=== PATIENT | female | born 1985 | race Caucasian/White ===

== ENCOUNTER 2016-11-26 11:30 | Emergency (ER) | payer BC ==
--- NOTE | 2016-11-26 14:01 | EDDOCDS ---
Nurse's Notes [facility] Name: Dacia Farrell Age: 31 yrs Sex: Female : 1985 Arrival Date: 11/26/2016 Time: 11:30 Bed I10 / 23 Private MD: NO PRIMARY PHYSICIAN, . Diagnosis: Corneal disorder due to contact lens, left eye Presentation: 11/26 11:37 Presenting complaint: Patient states: Left eye irritation since yesterday. Had contact rs3 lens in L eye could not find it last night. Denies change in vision. Adult Sepsis Screening: The patient does not have new or worsening altered mentation. Patient's respiratory rate is less than 22. Systolic blood pressure is greater than 100. Patient has a qSOFA score of 0- Negative Sepsis Screen. Suicide/Homicide risk assessment- the patient denies having any suicidal and/or homicidal ideations and does not present with any other emotional, behavioral or mental health complaints. Status: Patient is not a service liaison representative or dependent. Transition of care: patient was not received from another setting of care. 11:37 Acuity: MARGA Level 4 rs3 11:37 Method Of Arrival: Walkin/Carried/Asstd rs3 Triage Assessment: 11:41 General: Appears in no apparent distress. Pain: Location: left eye. Pt Declines HIV rs3 testing. 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 Mirena 20 mcg/24 hr (5 years) intrauterine IUD - PMHx: none; - PSHx: Tonsillectomy; - Social history: Smoking status: Patient uses tobacco products, light tobacco smoker. No barriers to communication noted, The patient speaks fluent Sinhala. - Family history: Not pertinent. - : The pt / caregiver states he / she is not on anticoagulants. Home medication list is obtained from the patient. - Exposure Risk Screening:: None identified. Screenin:46 Screening information is obtained from prior medical records. Fall risk: No risks ms2 identified. Assistance ADL's: requires no assistance with activities of daily living. Abuse/DV Screen: The patient / caregiver reports he/she is: not in a situation that causes fear, pain or injury. Nutritional screening: No deficits noted. Advance Directives: Currently, there is no health care proxy. There is no active DNR order. There is no living will. There is no Power of Oyster Opener. Advance directive information has not previously been placed in an [facility] medical record. Further advance directive information is declined. home support is adequate. Assessment: 12:24 General: pt's left eye irrigation with Morgon lens initiated with 500 NACL---tolerating ms2 well. 12:44 General: Appears in no apparent distress, eye irrigation almost done---pt tolerating ms2 well. Behavior is cooperative. Neurological: No deficits noted. Respiratory: Respiratory effort is even, unlabored. Derm: Skin is pink, warm & dry. 12:50 General: eye irrigation done -pt tolerated well---PA aware. ms2 Vital Signs: 11:32 BP 155 / 60; Pulse 98; Resp 18 S; Temp 98.2(O); Pulse Ox 98% on R/A; Weight 99.79 kg dd6 (R); Height 5 ft. 0 in. (152.40 cm) (R); 13:58 BP 140 / 67 RA Sitting (auto/reg); Pulse 90; Resp 18; Temp 98.0(O); Pulse Ox 98% on jrd R/A; Pain 0/10; 11:32 Body Mass Index 42.97 (99.79 kg, 152.40 cm) dd6 Vitals: 11:32 Log In Time: November 26, 2016 at 11:30. dd6 ED Course: 11:32 Patient visited by Charles Anthony PCA. dd6 11:32 NO PRIMARY PHYSICIAN, . is Private Physician. dd6 11:32 Patient moved to Waiting dd6 11:33 Patient moved to Pre RCE dd6 11:37 Patient moved to Triage 3 ar3 11:40 Triage Initiated rs3 11:46 [facility] Tipt[facility]. jk8 11:46 Kiko Hodge MD is Attending Physician. jk8 11:46 Patient visited by Suraj Tipton PA-C. jk8 12:11 Patient moved to I6 / ar3 12:12 [facility] Payment Agreement was scanned into [employer] and attached to record. mm15 12:44 Patient visited by Roman Sarah RN. ms2 12:45 The patient / caregiver is instructed regarding the plan of care and ED course. ms2 12:45 No IV's were initiated during this patient's visit. No procedures done that require ms2 assistance. 13:29 Patient moved to I1 jrd 13:59 Patient visited by Suraj Simon PCA. amelia Order Results: There are currently no results for this order. Outcome: 13:51 Discharge ordered by Provider. jk8 13:59 Discharge Assessment: Patient awake, alert and oriented x 3. No cognitive and/or dls functional deficits noted. Patient verbalized understanding of disposition instructions. patient administered narcotics - no. The following High Risk Discharge criteria are identified: None. Discharged to home ambulatory, with significant other. Condition: stable. Discharge instructions given to patient, Instructed on discharge instructions, follow up and referral plans. medication usage, Demonstrated understanding of instructions, medications, Pt was receptive of discharge instructions/ teaching. Prescriptions given X 1. No special radiology studies were completed. Property sent home with patient. 14:00 Patient left the ED. dls Signatures: Roman Sarah RN RN ms2 Citlali Yancey RN RN Charles Collins, FINANCE TEACHER FINANCE TEACHER dd6 Danica Luque RN RN rs3 Airam Juarez, FINANCE TEACHER FINANCE TEACHER ar3 Jesus Manuel Cole mm15 Suraj Simon, FINANCE TEACHER FINANCE TEACHER jrd Suraj Tipton PA-C PA-C jk8 MTDD
--- NOTE | 2016-11-26 14:01 | EDDOCDS ---
Physician Documentation [facility] Name: Dacia Farrell Age: 31 yrs Sex: Female : 1985 Arrival Date: 11/26/2016 Time: 11:30 Bed I10 / 23 Private MD: NO PRIMARY PHYSICIAN, . Disposition: 11/26/16 13:51 Discharged to Home/Self Care. Impression: Corneal disorder due to contact lens, left eye. - Condition is Stable. - Prescriptions for Naphcon- A 0.025-0.3 % Ophthalmic Drops - instill 1 drop by OPHTHALMIC route 2-4 times daily; 1 bottle. - Medication Reconciliation, Local Pharmacy Hours form. - Follow up: Emergency Department; When: As soon as possible; Reason: Worsening of conditions. Follow up: Private Physician; When: 2 - 3 days; Reason: If symptoms return. - Problem is new. - Symptoms have improved. Historical: - Allergies: Coconut; - Home Meds: 1. Mirena 20 mcg/24 hr (5 years) intrauterine IUD - PMHx: none; - PSHx: Tonsillectomy; - Social history: Smoking status: Patient uses tobacco products, light tobacco smoker. No barriers to communication noted, The patient speaks fluent Moroccan. - Family history: Not pertinent. - : The pt / caregiver states he / she is not on anticoagulants. Home medication list is obtained from the patient. - Exposure Risk Screening:: None identified. 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 0 in. (152.40 cm) (R); 13:58 BP 140 / 67 RA Sitting (auto/reg); Pulse 90; Resp 18; Temp 98.0(O); Pulse Ox 98% on jrd R/A; Pain 0/10; 11:32 Body Mass Index 42.97 (99.79 kg, 152.40 cm) dd6 MDM: 12:04 Financial registration complete. mm15 12:11 Irrigate Eyes - Vasquez Lens ordered. jk8 12:12 [facility] Payment Agreement was scanned into [employer] and attached to record. mm15 Signatures: Citlali Yancey RN RN dls Danica Luque RN RN rs3 Jesus Manuel Cole mm15 Suraj Tipton PA-C PA-C jk8 The chart was reviewed and I authenticate all verbal orders and agree with the evaluation and treatment provided.Attachments: 12:12 [facility] Payment Agreement mm15 MTDD
--- NOTE | 2016-11-28 15:01 | EDDOCDS ---
Nurse's Notes [facility] Name: Dacia Farrell Age: 31 yrs Sex: Female : 1985 Arrival Date: 11/26/2016 Time: 11:30 Bed I10 / 23 Private MD: NO PRIMARY PHYSICIAN, . Diagnosis: Corneal disorder due to contact lens, left eye Presentation: 11/26 11:37 Presenting complaint: Patient states: Left eye irritation since yesterday. Had contact rs3 lens in L eye could not find it last night. Denies change in vision. Adult Sepsis Screening: The patient does not have new or worsening altered mentation. Patient's respiratory rate is less than 22. Systolic blood pressure is greater than 100. Patient has a qSOFA score of 0- Negative Sepsis Screen. Suicide/Homicide risk assessment- the patient denies having any suicidal and/or homicidal ideations and does not present with any other emotional, behavioral or mental health complaints. Status: Patient is not a street light servicer or dependent. Transition of care: patient was not received from another setting of care. 11:37 Acuity: MARGA Level 4 rs3 11:37 Method Of Arrival: Walkin/Carried/Asstd rs3 Triage Assessment: 11:41 General: Appears in no apparent distress. Pain: Location: left eye. Pt Declines HIV rs3 testing. 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 Mirena 20 mcg/24 hr (5 years) intrauterine IUD - PMHx: none; - PSHx: Tonsillectomy; - Social history: Smoking status: Patient uses tobacco products, light tobacco smoker. No barriers to communication noted, The patient speaks fluent Yakut. - Family history: Not pertinent. - : The pt / caregiver states he / she is not on anticoagulants. Home medication list is obtained from the patient. - Exposure Risk Screening:: None identified. Screenin:46 Screening information is obtained from prior medical records. Fall risk: No risks ms2 identified. Assistance ADL's: requires no assistance with activities of daily living. Abuse/DV Screen: The patient / caregiver reports he/she is: not in a situation that causes fear, pain or injury. Nutritional screening: No deficits noted. Advance Directives: Currently, there is no health care proxy. There is no active DNR order. There is no living will. There is no Power of Copy Technician. Advance directive information has not previously been placed in an [facility] medical record. Further advance directive information is declined. home support is adequate. Assessment: 12:24 General: pt's left eye irrigation with Morgon lens initiated with 500 NACL---tolerating ms2 well. 12:44 General: Appears in no apparent distress, eye irrigation almost done---pt tolerating ms2 well. Behavior is cooperative. Neurological: No deficits noted. Respiratory: Respiratory effort is even, unlabored. Derm: Skin is pink, warm & dry. 12:50 General: eye irrigation done -pt tolerated well---PA aware. ms2 Vital Signs: 11:32 BP 155 / 60; Pulse 98; Resp 18 S; Temp 98.2(O); Pulse Ox 98% on R/A; Weight 99.79 kg dd6 (R); Height 5 ft. 0 in. (152.40 cm) (R); 13:58 BP 140 / 67 RA Sitting (auto/reg); Pulse 90; Resp 18; Temp 98.0(O); Pulse Ox 98% on jrd R/A; Pain 0/10; 11:32 Body Mass Index 42.97 (99.79 kg, 152.40 cm) dd6 Vitals: 11:32 Log In Time: November 26, 2016 at 11:30. dd6 ED Course: 11:32 Patient visited by Charles Anthony PCA. dd6 11:32 NO PRIMARY PHYSICIAN, . is Private Physician. dd6 11:32 Patient moved to Waiting dd6 11:33 Patient moved to Pre RCE dd6 11:37 Patient moved to Triage 3 ar3 11:40 Triage Initiated rs3 11:46 [facility]. jk8 11:46 Kiko Hodge MD is Attending Physician. jk8 11:46 Patient visited by Suraj Tipton PA-C. jk8 12:11 Patient moved to I6 / ar3 12:12 [facility] Payment Agreement was scanned into [employer] and attached to record. mm15 12:44 Patient visited by Roman Sarah RN. ms2 12:45 The patient / caregiver is instructed regarding the plan of care and ED course. ms2 12:45 No IV's were initiated during this patient's visit. No procedures done that require ms2 assistance. 13:29 Patient moved to I1 jrkushal 13:59 Patient visited by Suraj Simon PCA. jrd 21:01 T-Sheet-- Draft Copy was scanned into [employer] and attached to record. klr Order Results: There are currently no results for this order. Outcome: 13:51 Discharge ordered by Provider. [email or web address] 13:59 Discharge Assessment: Patient awake, alert and oriented x 3. No cognitive and/or dls functional deficits noted. Patient verbalized understanding of disposition instructions. patient administered narcotics - no. The following High Risk Discharge criteria are identified: None. Discharged to home ambulatory, with significant other. Condition: stable. Discharge instructions given to patient, Instructed on discharge instructions, follow up and referral plans. medication usage, Demonstrated understanding of instructions, medications, Pt was receptive of discharge instructions/ teaching. Prescriptions given X 1. No special radiology studies were completed. Property sent home with patient. 14:00 Patient left the ED. dls Signatures: Roman Sarah,RN RN ms2 Citlali Yancey RN RN dls Charles Anthony, EXPLOSIVE TECHNICIAN EXPLOSIVE TECHNICIAN dd6 Danica LuqueRN RN rs3 Airam Juarez, EXPLOSIVE TECHNICIAN EXPLOSIVE TECHNICIAN ar3 Jesus Manuel Cole mm15 Suraj Simon, EXPLOSIVE TECHNICIAN EXPLOSIVE TECHNICIAN jrd Suraj Tipton PA-C PA-C jkDebbie Webb Chart Complete MTDD
--- NOTE | 2016-11-28 15:01 | EDDOCDS ---
Physician Documentation [facility] Name: Dacia Farrell Age: 31 yrs Sex: Female : 1985 Arrival Date: 11/26/2016 Time: 11:30 Bed I10 / 23 Private MD: NO PRIMARY PHYSICIAN, . Disposition: 11/26/16 13:51 Discharged to Home/Self Care. Impression: Corneal disorder due to contact lens, left eye. - Condition is Stable. - Prescriptions for Naphcon- A 0.025-0.3 % Ophthalmic Drops - instill 1 drop by OPHTHALMIC route 2-4 times daily; 1 bottle. - Medication Reconciliation, Local Pharmacy Hours form. - Follow up: Emergency Department; When: As soon as possible; Reason: Worsening of conditions. Follow up: Private Physician; When: 2 - 3 days; Reason: If symptoms return. - Problem is new. - Symptoms have improved. Historical: - Allergies: Coconut; - Home Meds: 1. Mirena 20 mcg/24 hr (5 years) intrauterine IUD - PMHx: none; - PSHx: Tonsillectomy; - Social history: Smoking status: Patient uses tobacco products, light tobacco smoker. No barriers to communication noted, The patient speaks fluent Kuwaiti. - Family history: Not pertinent. - : The pt / caregiver states he / she is not on anticoagulants. Home medication list is obtained from the patient. - Exposure Risk Screening:: None identified. 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 0 in. (152.40 cm) (R); 13:58 BP 140 / 67 RA Sitting (auto/reg); Pulse 90; Resp 18; Temp 98.0(O); Pulse Ox 98% on jrd R/A; Pain 0/10; 11:32 Body Mass Index 42.97 (99.79 kg, 152.40 cm) dd6 MDM: 12:04 Financial registration complete. mm15 12:11 Irrigate Eyes - Vasquez Lens ordered. jk8 12:12 [facility] Payment Agreement was scanned into [employer] and attached to record. mm15 21:01 T-Sheet-- Draft Copy was scanned into [employer] and attached to record. klr Signatures: Citlali Yancey RN RN dls Danica Luque RN RN rs3 Jesus Manuel Cole mm15 Suraj Tipton PA-C PA-C jk8 Debbie Haney The chart was reviewed and I authenticate all verbal orders and agree with the evaluation and treatment provided.Attachments: 12:12 [facility] Payment Agreement mm15 21:01 T-Sheet-- Draft Copy klr Chart Complete MTDD
--- NOTE | 2016-11-28 15:01 | EDDOCDS ---
Physician Documentation [facility] Name: Dacia Farrell Age: 31 yrs Sex: Female : 1985 Arrival Date: 11/26/2016 Time: 11:30 Bed I10 / 23 Private MD: NO PRIMARY PHYSICIAN, . Disposition: 11/26/16 13:51 Discharged to Home/Self Care. Impression: Corneal disorder due to contact lens, left eye. - Condition is Stable. - Prescriptions for Naphcon- A 0.025-0.3 % Ophthalmic Drops - instill 1 drop by OPHTHALMIC route 2-4 times daily; 1 bottle. - Medication Reconciliation, Local Pharmacy Hours form. - Follow up: Emergency Department; When: As soon as possible; Reason: Worsening of conditions. Follow up: Private Physician; When: 2 - 3 days; Reason: If symptoms return. - Problem is new. - Symptoms have improved. Historical: - Allergies: Coconut; - Home Meds: 1. Mirena 20 mcg/24 hr (5 years) intrauterine IUD - PMHx: none; - PSHx: Tonsillectomy; - Social history: Smoking status: Patient uses tobacco products, light tobacco smoker. No barriers to communication noted, The patient speaks fluent Paraguayan. - Family history: Not pertinent. - : The pt / caregiver states he / she is not on anticoagulants. Home medication list is obtained from the patient. - Exposure Risk Screening:: None identified. 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 0 in. (152.40 cm) (R); 13:58 BP 140 / 67 RA Sitting (auto/reg); Pulse 90; Resp 18; Temp 98.0(O); Pulse Ox 98% on jrd R/A; Pain 0/10; 11:32 Body Mass Index 42.97 (99.79 kg, 152.40 cm) dd6 MDM: 12:04 Financial registration complete. mm15 12:11 Irrigate Eyes - Vasquez Lens ordered. jk8 12:12 [facility] Payment Agreement was scanned into [employer] and attached to record. mm15 21:01 T-Sheet-- Draft Copy was scanned into [employer] and attached to record. klr Signatures: Citlali Yancey RN RN dls Danica Luque RN RN rs3 Jesus Manuel Cole mm15 Suraj Tipton PA-C PA-C jk8 Debbie Haney The chart was reviewed and I authenticate all verbal orders and agree with the evaluation and treatment provided.Attachments: 12:12 [facility] Payment Agreement mm15 21:01 T-Sheet-- Draft Copy klr Chart Complete MTDD
== END 2016-11-26 14:00 | disposition home or self-care (01) ==
LOC: M ED 11:30
DX: H18.822 Corneal disorder due to contact lens, left eye (principal); F17.210 Nicotine dependence, cigarettes, uncomplicated; Z97.5 Presence of (intrauterine) contraceptive device; Z91.018 Allergy to other foods

== ENCOUNTER → 2017-08-02 | Outpatient (REF) | payer BC | LOC: M LAB REF 16:36 | PROVIDERS: ATTEND Physician Assistant | DX: J02.9 Acute pharyngitis, unspecified (principal) ==

== ENCOUNTER 2018-07-08 23:58 | Emergency (ER) | payer BC ==
[2018-07-09] MEDS: KETOROLAC 30 MG/ML VIAL (J1885) IV (00:48)
[2018-07-09] MEDS: NS 1,000 ML IV (00:49)
[2018-07-09 00:56] LABS: BASO % 0.3 % (0.0-1.0); EOS # 0.3 10^3/uL (0.0-0.50); EOS % 2.4 % (0.0-3.0); HEMATOCRIT 37.8 % (36.0-47.0); HEMOGLOBIN 12.7 g/dl (12.0-15.5); IMMATURE GRANULOCYTE % 0.5 % (0-3.0); LYMPH # 3.8 10^3/uL (1.5-4.5); LYMPH % 29.6 % (24.0-44.0); MEAN CORPUSCULAR HEMOGLOBIN 29.8 pg (27.0-33.0); MEAN CORPUSCULAR HGB CONC 33.6 g/dl (32.0-36.5); MEAN CORPUSCULAR VOLUME 88.7 fl (80.0-96.0); MONO # 1.4 10^3/uL (0.0-0.8); MONO % 11.1 % (0.0-5.0); NEUTROPHILS # 7.2 10^3/uL (1.8-7.7); NEUTROPHILS % 56.1 % (36.0-66.0); PLATELET COUNT, AUTOMATED 336 10^3/uL (150-450); RED BLOOD COUNT 4.26 10^6/uL (4.00-5.40); RED CELL DISTRIBUTION WIDTH 13.5 % (11.5-14.5); WHITE BLOOD COUNT 12.9 10^3/uL (4.0-10.0)
[2018-07-09 01:09] LABS: APPEARANCE, URINE HAZY (CLEAR); BACTERIA, URINE AUTO NEGATIVE (NEGATIVE); BILIRUBIN, URINE AUTO NEGATIVE (NEGATIVE); BLOOD, URINE BLOOD NEGATIVE (NEGATIVE); COLOR, URINE YELLOW (YELLOW); GLUCOSE, URINE (UA) AUTO NEGATIVE (NEGATIVE); KETONE, URINE AUTO TRACE mg/dL (NEGATIVE); LEUKOCYTE ESTERASE, URINE AUTO NEGATIVE (NEGATIVE); MUCUS, URINE SMALL (NEGATIVE); NITRITE, URINE AUTO NEGATIVE (NEGATIVE); PROTEIN, URINE AUTO NEGATIVE (NEGATIVE); RBC, URINE AUTO 3 /HPF (0-3); SPECIFIC GRAVITY URINE AUTO 1.034 (1.002-1.035); SQUAMOUS EPITHELIAL CELL UR AU 3 /HPF (0-6); UROBILINOGEN, URINE AUTO 0.2 mg/dL (0.0-2.0); WBC, URINE AUTO 1 /HPF (0-3)
[2018-07-09 01:14] LABS: CONTROL LINE HCG INT CTR LINE PRESENT; HCG, SERUM QUALITATIVE NEGATIVE (NEGATIVE)
[2018-07-09 01:16] LABS: ALBUMIN 3.4 GM/DL (3.2-5.2); ALBUMIN/GLOBULIN RATIO 0.97 (1.00-1.93); ALKALINE PHOSPHATASE 79 U/L (45-117); ALT/SGPT 30 U/L (12-78); ANION GAP 9 MEQ/L (8-16); AST/SGOT 13 U/L (7-37); BILIRUBIN,DIRECT < 0.1 MG/DL (0.0-0.2); BILIRUBIN,TOTAL 0.2 MG/DL (0.2-1.0); BLOOD UREA NITROGEN 14 MG/DL (7-18); CARBON DIOXIDE LEVEL 26 MEQ/L (21-32); CHLORIDE LEVEL 108 MEQ/L (98-107); CREATININE FOR GFR 0.91 MG/DL (0.55-1.30); GLOMERULAR FILTRATION RATE > 60.0 (>60); GLUCOSE, FASTING 118 MG/DL (70-100); LIPASE 135 U/L (73-393); SODIUM LEVEL 143 MEQ/L (136-145); TOTAL PROTEIN 6.9 GM/DL (6.4-8.2)
[2018-07-09 01:18] LABS: LACTIC ACID SEPSIS PROTOCOL 0.9 MMOL/L (0.4-2.0)
== END 2018-07-09 02:54 | disposition home or self-care (01) ==
LOC: M ED 23:58
DX: M62.830 Muscle spasm of back (principal); Z91.018 Allergy to other foods; Z72.0 Tobacco use
CPT/HCPCS: J1885

== ENCOUNTER 2018-07-09 20:57 | Emergency (ER) | payer BC ==
[2018-07-09] MEDS: ACETAMINOPHEN TAB 650MG DOSE (2X325MG) PO (22:00)
[2018-07-09] MEDS: traMADol 50 MG TAB PO (22:00)
[2018-07-09 22:20] LABS: BASO % 0.4 % (0.0-1.0); EOS # 0.3 10^3/uL (0.0-0.50); EOS % 2.7 % (0.0-3.0); HEMATOCRIT 38.1 % (36.0-47.0); HEMOGLOBIN 12.8 g/dl (12.0-15.5); IMMATURE GRANULOCYTE % 0.3 % (0-3.0); LYMPH # 3.6 10^3/uL (1.5-4.5); LYMPH % 34.5 % (24.0-44.0); MEAN CORPUSCULAR HEMOGLOBIN 29.6 pg (27.0-33.0); MEAN CORPUSCULAR HGB CONC 33.6 g/dl (32.0-36.5); MEAN CORPUSCULAR VOLUME 88.2 fl (80.0-96.0); MONO # 1.1 10^3/uL (0.0-0.8); NEUTROPHILS # 5.5 10^3/uL (1.8-7.7); NEUTROPHILS % 52.1 % (36.0-66.0); PLATELET COUNT, AUTOMATED 349 10^3/uL (150-450); RED BLOOD COUNT 4.32 10^6/uL (4.00-5.40); RED CELL DISTRIBUTION WIDTH 13.2 % (11.5-14.5); WHITE BLOOD COUNT 10.6 10^3/uL (4.0-10.0)
[2018-07-09 22:48] LABS: ALBUMIN 3.3 GM/DL (3.2-5.2); ALBUMIN/GLOBULIN RATIO 0.94 (1.00-1.93); ALKALINE PHOSPHATASE 78 U/L (45-117); ALT/SGPT 27 U/L (12-78); ANION GAP 11 MEQ/L (8-16); AST/SGOT 14 U/L (7-37); BILIRUBIN,DIRECT < 0.1 MG/DL (0.0-0.2); BILIRUBIN,TOTAL 0.2 MG/DL (0.2-1.0); BLOOD UREA NITROGEN 13 MG/DL (7-18); CALCIUM LEVEL 9.3 MG/DL (8.5-10.1); CARBON DIOXIDE LEVEL 27 MEQ/L (21-32); CHLORIDE LEVEL 104 MEQ/L (98-107); CREATININE FOR GFR 0.71 MG/DL (0.55-1.30); GLOMERULAR FILTRATION RATE > 60.0 (>60); GLUCOSE, FASTING 93 MG/DL (70-100); POTASSIUM SERUM 3.9 MEQ/L (3.5-5.1); SODIUM LEVEL 142 MEQ/L (136-145); TOTAL PROTEIN 6.8 GM/DL (6.4-8.2)
[2018-07-09 23:06] LABS: D-DIMER QUANT < 270.0 ng/ml (<500)
[2018-07-09] MEDS: traMADol 50 MG TAB (BULK 4 TAB ED) PO (23:59)
== END 2018-07-10 | disposition home or self-care (01) ==
LOC: M ED 07-10
DX: R10.9 Unspecified abdominal pain (principal); M62.838 Other muscle spasm; Z91.018 Allergy to other foods; F17.210 Nicotine dependence, cigarettes, uncomplicated
CPT/HCPCS: 71046